=== PATIENT | female | born 1995 | race Caucasian/White ===

== ENCOUNTER → 2016-11-20 | Outpatient (CLI) | payer OTHER ==
[~2016-11-20] MED LIST: CEPH-460 PO; COLA100C3 PO; IBUP-232 PO; ORTH0.35 PO; PREN29TA PO; ZOFR4TAB3 SL
== END ==
LOC: HPND 14:14
PROVIDERS: ATTEND Family Medicine
DX: O41.03X0 Oligohydramnios, third trimester, not applicable or unspecified (principal); Z3A.32 32 weeks gestation of pregnancy
CPT/HCPCS: 76816; 76820

== ENCOUNTER → 2016-12-13 | Outpatient (CLI) | payer OTHER | LOC: HPND 14:36 | PROVIDERS: ATTEND Family Medicine | DX: O36.5920 Maternal care for other known or suspected poor fetal growth, second trimester, not applicable or unspecified (principal) | CPT/HCPCS: 76816 ==

== ENCOUNTER → 2017-01-10 | Outpatient (CLI) | payer OTHER | LOC: HPND 11:04 | PROVIDERS: ATTEND Family Medicine | DX: O36.5930 Maternal care for other known or suspected poor fetal growth, third trimester, not applicable or unspecified (principal) | CPT/HCPCS: 76816 ==

== ENCOUNTER 2017-01-15 18:49 | Inpatient (IN) | payer OTHER ==
[~2017-01-15] VITALS: Ht 165.1 cm; Wt 85.7 kg
[~2017-01-15 18:49] MED LIST changes: -CEPH-460 PO; -IBUP-232 PO; -ORTH0.35 PO; -PREN29TA PO
[2017-01-15] MEDS ORDERED: LACTATED RINGER'S 1000 ML INJ 1,000 ML IV PRN (19:32)
[2017-01-15] MEDS ORDERED: SODIUM CHLOR 0.9% 1000 ML INJ 1,000 ML OTHER PRN (19:34)
[2017-01-15] MEDS ORDERED: CITRIC ACID-SODIUM CITRATE LIQ 30 ML UDC PO SCH (19:45)
[2017-01-15] MEDS ORDERED: SODIUM CHLORIDE 0.9% FLUSH 10 ML FLUSH IV FLUSH PRN (19:45)
[2017-01-15] MEDS ORDERED: ONDANSETRON HCL 4 MG/2 ML VIAL IV PRN (19:45)
[2017-01-15] MEDS ORDERED: SODIUM CHLORID 0.9% 500 ML INJ 500 ML IV PRN (19:45)
[2017-01-15] MEDS ORDERED: LIDOCAINE HCL 1% 50 ML VIAL INFIL PRN (19:45)
[2017-01-15] MEDS ORDERED: LIDOCAINE HCL 1% 50 ML VIAL I-DERMAL PRN (19:45)
[2017-01-15] MEDS ORDERED: MISOPROSTOL 25 MCG SUPP VAGINAL ONE (19:45)
[2017-01-15] MEDS ORDERED: MINERAL OIL 10 ML VIAL TOPICAL PRN (19:45)
[2017-01-15] MEDS ORDERED: OXYTOCIN 30 UNITS-500ML PREMIX 500 ML IV ONE (19:45)
[2017-01-15] MEDS: LACTATED RINGER'S 1000 ML INJ 1,000 ML IV SCH ×2 (19:49→23:43)
[2017-01-15] MEDS ORDERED: SODIUM CHLOR 0.9% 1000 ML INJ 1,000 ML IV PRN (19:52)
--- NOTE | 2017-01-15 19:55 | HHI.HP ---
HPI Chief Complaint IOL Date Seen: Jan 15, 2017 Time Seen: 19:22 (Chelo Rivera MD R1) Travel History International Travel<30 Days: No Contact w/Intl Traveler<30Days: No Known Affected Area: No (Chelo Rivera MD) History of Present Illness HPI Patient is a 21-year-old at 40/0 weeks gestation, due date by second trimester ultrasound, that presents to the [facility] for induction of labor due to low DIEGO according to patient. Notably, 39 week ultrasound shows DIEGO of 20.6 cm. She is followed by Dr. Mary in the [facility]. She is GBS negative , all labs were negative or within normal limits. Today, the patient denies contractions but has been having cramping. She denies regular contractions, vaginal bleeding, abnormal vaginal discharge, or gush of fluid. She endorses normal movements. She is having a girl and is excited to meet her. She does not want an epidural at this time. Para: 0 : 1 Miscarriage: 0 : 0 (Chelo Rivera MD) History Past Medical History Medical History: Denies Significant Hx (Chelo Rivera MD) Obstetric History Obstetric History (Chelo Rivera MD) Past Surgical History Surgical History: No Previous Surgery (Chelo Rivera MD) Family History Narrative Family History Maternal grandmother has diabetes No family history of hypertension Family History: (Chelo Rivera MD) Social History Alcohol Use: No Tobacco Use: No Substance Abuse: No (Chelo Rivera MD) Allergies-Medications (Allergen,Severity, Reaction): Coded Allergies: No Known Allergies (Unverified , 01/11/17) Home Meds Active Scripts Ondansetron Odt (Zofran Odt)4 Mg Tab4 Mg SL Q12HR PRN (Nausea/Vomiting) #30 TAB Ref 2 Prov:Sharlene Mary MD R3 08/15/16 Docusate Sodium (Colace)100 Mg [id number] Mg PO BID PRN (Constipation) #60 CAP Ref 3 Prov:Sharlene Mary MD R3 08/15/16 Review of Systems General / Constitutional: No: Fever, Chills HENT: No: Headaches Cardiovascular: No: Chest Pain or Discomfort, Edema Respiratory: No: Short of Breath Gastrointestinal: No: Nausea, Vomiting Genitourinary: No: Discharge, Vaginal Bleeding Musculoskeletal: Cramping (EkoChelo MD R1) Physical Exam Narrative GENERAL: Well-nourished, well-developed patient. SKIN: Warm and dry. HEAD: Normocephalic and atraumatic. EYES: No scleral icterus. No injection or drainage. ENT: No nasal drainage noted. Mucous membranes pink. Airway patent. NECK: Supple, trachea midline. No JVD. CARDIOVASCULAR: Regular rate and rhythm without murmurs, gallops, or rubs. RESPIRATORY: Breath sounds equal bilaterally. No accessory muscle use. ABDOMEN/GI: Abdomen soft, non-tender, bowel sounds present, no rebound, no guarding Gravid to 40 weeks size Fundal Height: 40 cm GENITOURINARY: External Genitalia: intact and normal in appearance Cervix: Posterior Dilatation: 0 cm Effacement: 50% Station: -2 Presentation: Vertex Membranes: Intact Uterine Contractions: Mild FHT's: Category: 1 Baseline: 145 Reactive: Yes, up to 155 Variability: Moderate Decels: None EXTREMITIES: No cyanosis or obvious edema. BACK: Nontender without obvious deformity. No CVA tenderness. NEUROLOGICAL: Awake and alert. Motor and sensory grossly within normal limits. Five out of 5 muscle strength in all muscle groups. Normal speech. (Chelo Rivera MD R1) Data Data Vital Signs Reviewed: Yes Orders Admit To Inpatient (01/15/17 ) Code Status (01/15/17 19:32) Vital Signs (Adult) .Per protocol (01/15/17 19:32) Activity Oob Ad Charmaine (01/15/17 19:32) ^ Heart (01/15/17 19:32) ^ Amnioinfusion (01/15/17 19:32) Urinary Catheter Management .ONCE (01/15/17 19:32) Diet Liquid (01/16/17 Breakfast) Lactated Ringer's 1000 Ml Inj (Lr 1000 M (01/15/17 19:32) Lactated Ringer's 1000 Ml Inj (Lr 1000 M (01/15/17 19:32) Sodium Chlorid 0.9% 500 Ml Inj (Ns 500 M (01/15/17 19:45) Sodium Chlor 0.9% 1000 Ml Inj (Ns 1000 M (01/15/17 19:52) Lidocaine 1% Inj (50 Ml) (Xylocaine 1% I (01/15/17 19:45) Citric Acid-Sodium Citrate Liq (Bicitra (01/15/17 19:45) Ondansetron Inj (Zofran Inj) (01/15/17 19:45) Fentanyl Inj (Fentanyl Inj) (01/15/17 19:45) Fentanyl Inj (Fentanyl Inj) (01/15/17 19:45) Complete Blood Count With Diff (01/15/17 19:32) Hold Clot (01/15/17 19:32) Abo/Rh Blood Type (01/15/17 19:32) Urinalysis - C+S If Indicated (01/15/17 19:32) Resp Oxygen Non Rebreathe Mask (01/15/17 ) ^ Epidural / Intrathecal Infus (01/15/17 19:32) Oxytocin 30 Units-500ml Premix (Pitocin (01/15/17 19:45) Lidocaine 1% Inj (50 Ml) (Xylocaine 1% I (01/15/17 19:45) Light Mineral Oil (Muri-Lube Oil) (01/15/17 19:45) Inpatient Certification (01/15/17 ) Specimen To Be Collected PRN (01/15/17 19:32) Activity Oob Ad Charmaine (01/15/17 19:34) ^ Labor Induction (01/15/17 19:34) ^ Vaginal Insert (01/15/17 19:34) ^ Vaginal Lavage (01/15/17 19:34) ^ Heart (01/15/17 19:34) Sodium Chloride 0.9% Flush (Ns Flush) (01/15/17 21:00) Sodium Chloride 0.9% Flush (Ns Flush) (01/15/17 19:45) Sodium Chlor 0.9% 1000 Ml Inj (Ns 1000 M (01/15/17 19:34) Misoprostol Supp (Cytotec Supp) (01/15/17 19:45) Misoprostol Supp (Cytotec Supp) (01/15/17 23:45) (Eko,Chelo Mehta MD R1) Assessment/Plan Problem List: (1) 40 weeks gestation of Assessment and Plan 21-year-old at 40/0 weeks gestation presents for induction of labor -Intrauterine -Category 1 tracing, reassuring -Admit for IOL -GBS negative -Intact membranes -Cervical ripening with Cytotec -Expect vaginal delivery Discharge Planning Anticipate discharge in 2-3 days (Chelo Rivera MD R1) Attending Attestation Pt seen and evaluated. Shad with resident A/P. Barbour Score of 3 for cervical ripening. d/w pt cervical ripening plan, oxytocin and epidural and what to expect. Addendum for surgical history: pts mother recalls h/o right breast cystectomy 4 years ago. (Urmila Arteaga MD) Chelo Rivera MD R1 Jan 15, 2017 19:55 Urmila Arteaga MD Jan 15, 2017 21:04
[2017-01-15 20:44] LABS: AUTOMATED NEUTROPHIL # 6.2 TH/MM3 (1.8-7.7); BACTERIA, URINE RARE /hpf; BASOPHIL % 0.3 % (0.0-2.0); BLOOD, URINE NEG (NEG); COMMENT (UR) CULT NOT INDICATED; CULTURE IF INDICATED CULT NOT INDICATED; EOSINOPHIL % 0.4 % (0.0-4.0); GLUCOSE,URINE NEG (NEG); HEMATOCRIT 32.6 % (35.0-46.0); HEMO FLAGS DIFF FINAL; KETONE, URINE 40 mg/dL (NEG); LYMPH % 18.9 % (9.0-44.0); LYMPHOCYTE # 1.6 TH/MM3 (1.0-4.8); MEAN CELL VOLUME 89.6 FL (80.0-100.0); MEAN CORPUSCULAR HEMOGLOBIN 30.4 PG (27.0-34.0); MEAN CORPUSCULAR HGB CONC 33.9 % (32.0-36.0); MONO % 6.1 % (0.0-8.0); MUCUS URINE FEW /lpf (OCC); NEUT % 74.3 % (16.0-70.0); NITRITE,URINE NEG (NEG); PLATELET COUNT 238 TH/MM3 (150-450); RED BLOOD COUNT 3.64 MIL/MM3 (4.00-5.30); RED CELL DISTRIBUTION WIDTH 13.5 % (11.6-17.2); SQUAMOUS EPITHELIAL CELL URINE 7 /hpf (0-5); URINE COLOR YELLOW (YELLW/STRAW); WHITE BLOOD COUNT 8.4 TH/MM3 (4.0-11.0)
[2017-01-15] MEDS ORDERED: SODIUM CHLORIDE 0.9% FLUSH 10 ML FLUSH IV FLUSH SCH (21:00)
[2017-01-15 22:11] VITALS: BP 114/59; PULSE 88
[2017-01-15 23:04] VITALS: BP 120/66; PULSE 87
[2017-01-15] MEDS ORDERED: MISOPROSTOL 25 MCG SUPP VAGINAL PRN (23:45)
[2017-01-16] VITALS (12 sets, daily range): BP systolic 106–130; BP diastolic 43–72; PULSE 59–83; RESP 16–18; TEMP 98–98.2
[2017-01-16] MEDS: LACTATED RINGER'S 1000 ML INJ 1,000 ML IV SCH (05:01)
[2017-01-16] MEDS ORDERED: MISOPROSTOL 25 MCG SUPP VAGINAL ONE (06:45)
--- NOTE | 2017-01-16 07:12 | PD.LABORPN ---
Subjective Subjective Patient resting comfortably in bed. (Michelle Forrest MD R2) Objective Vital Signs Vital Signs Date Time Temp Pulse Resp B/P Pulse Ox O2 Delivery O2 Flow Rate FiO2 01/16/17 07:02 98.0 18 01/16/17 07:00 59 117/72 01/16/17 05:53 61 130/69 01/16/17 04:30 98.2 01/16/17 02:01 72 106/43 01/16/17 00:30 98.0 01/16/17 00:00 76 117/61 Objective Pelvic Exam: Cervix: posterior Dilatation: 2 Effacement: 50 Station: -2 Presentation: vertex Membranes: intact Uterine Contractions: irregular FHT's: Category: I Baseline: 130 Reactive: + Variability: moderate Decels: none (Michelle Forrest MD R2) Assessment/Plan Problem List: (1) 40 weeks gestation of Assessment and Plan 21-year-old at 40/1 weeks gestation 1. Intrauterine - Category I tracing, reassuring 2. IOL- Cytotec x 2 overnight, cervical change to 2/50/-2, soft and stretchy. Will proceed with one more dose of Cytotec prior to starting Pitocin. 3. GBS negative 4. Anticipate vaginal delivery dw Dr. Arteaga, Dr. Mary, and Dr. Syed R1 (Michelle Forrest MD R2) Assessment and Plan Pt seen, discussed plan of care for the day. Overnight she received 2 doses of cytotec (9p, 240a), last dose of cytotec was at 7am, cervix at that time was 2/50/-2. Plan for regular diet now and start oxytocin in 4 hours. Counseled about epidural and what to expect, pt states she wants to try a natural without epidural. Management plan discussed with resident. (Urmila Arteaga MD) Michelle Forrest MD R2 Jan 16, 2017 07:12 Urmila Arteaga MD Jan 16, 2017 07:52
--- NOTE | 2017-01-16 12:25 | HHI.DCPOC ---
Discharge Care Plan Goals to Promote Your Health * To prevent worsening of your condition and complications follow up with your PCP * To maintain your health at the optimal level follow all discharge instructions Directions to Meet Your Goals Take your medications as prescribed Follow your dietary instruction Follow activity as directed Keep your appointments as scheduled Take your immunizations and boosters as scheduled If your symptoms worsen call your PCP, if no PCP go to Urgent Care Center or Emergency Room Smoking is Dangerous to Your Health. Avoid second hand smoke Call the 24-hour hour crisis hotline for domestic abuse at Sharlene Mary MD R3 Jan 16, 2017 12:25
--- NOTE | 2017-01-16 12:39 | PD.LABORPN ---
Subjective Subjective Patient is s/p Cytotec times 3 without change in her cervix which is still 2/50% /-3 and posterior. NST within normal limits. Category I tracing. (Sharlene Mary MD R3) Objective Vital Signs Vital Signs Date Time Temp Pulse Resp B/P Pulse Ox O2 Delivery O2 Flow Rate FiO2 01/16/17 10:23 16 01/16/17 10:01 83 127/70 01/16/17 09:01 75 128/66 01/16/17 08:38 16 01/16/17 08:37 69 114/53 01/16/17 07:02 98.0 18 01/16/17 07:00 59 117/72 01/16/17 05:53 61 130/69 01/16/17 04:30 98.2 Objective Pelvic Exam: Cervix: [posterior] Dilatation: [2] Effacement: [50%] Station: [-3] Presentation: [v] Membranes: [intact] Uterine Contractions: [q3m] FHT's: Category: [1] Baseline: [130] Reactive: [Acels to 135] Variability: [N] Decels: [N] (Sharlene Mary MD R3) Assessment/Plan Problem List: (1) 40 weeks gestation of Assessment and Plan 1. Failed induction of labor -Due to her unfavorable cervix, patient will be discharged to home and return once she goes into labor or at 41 WGA for induction. Labor precautions given. Patient understands that -continuation of induction with unfavorable cervix increases her risk of c/s. - tracing reassuring: Cat I, NST wnl -Follow up in clinic 01/19 (Sharlene Mary MD R3) Collaborating MD Comments Patient s/p cytotec x 3 with no significant cervical change. status reassuring. Have recommended discharge with cervical recheck late week and readmission for induction at 41 weeks. (Isatu Gomez MD) Sharlene Mary MD R3 Jan 16, 2017 12:39 Isatu Gomez MD Jan 16, 2017 13:21
[2017-03-01] MEDS ORDERED: ORTH0.35 PO (10:40)
== END 2017-01-16 12:38 | disposition home or self-care (01) | DRG 782 ==
LOC: H2EB 18:49 → H2EA 18:55
PROVIDERS: ADMIT Obstetrics & Gynecology; ATTEND Obstetrics & Gynecology
DX: O61.9 Failed induction of labor, unspecified (principal); Z3A.40 40 weeks gestation of pregnancy
CPT/HCPCS: 59025; 81001; 85025; 86900; 86901; J7120

== ENCOUNTER 2017-01-19 15:25 | Emergency (ER) | payer OTHER ==
--- NOTE | 2017-01-19 15:52 | PD ---
HPI Chief Complaint leaking "fluid" Date Seen: Jan 19, 2017 (Bjorn Pinedo MD R2) Travel History International Travel<30 Days: No Contact w/Intl Traveler<30Days: No (Bjorn Pinedo MD R2) History of Present Illness HPI Ms. Arita is a 21 yo G1 patient of [address]. Mary at an estimated 40 4/7 weeks who presents with concern for possible ROM. [Interval history: patient seen in office today by Dr. Aden Cope; instructed to go to OB ED for evaluation. Patient had recently underwent induction of labor at 40 wks gestation (01/16); she had a Barbour score <6 despite Cytotec x3 so was discharge home.] Patient states that over the past 2 days, she has been concerned of possible leakage of fluid and is worried that she may have ruptured membranes. Patient also reports having intermittent abdominal pressure suggestive of contractions; she reports this sometimes occurs every 5-10 minutes but sometimes spaces out without any contraction feelings for prolonged durations. Patient reports some bloody vaginal discharge since 01/16 but denies any anabella vaginal bleeding. Patient reports normal movement. No shortness of breath, chest pain, dysuria, leg swelling, headache, nausea, or vomiting. Patient states that she is GBS negative and has had a unremarkable course. Para: 0 : 1 (Bjorn Pinedo MD R2) History Past Medical History Medical History: Denies Significant Hx (Bjorn Pinedo MD R2) Obstetric History Obstetric History G1 (Bjorn Pinedo MD R2) Past Surgical History Narrative Surgical R breast cyst removal (Bjorn Pinedo MD R2) Family History Narrative Family History DM (Bjorn Pinedo MD R2) Social History Alcohol Use: No Tobacco Use: No Substance Abuse: No (Bjorn Pinedo MD R2) Allergies-Medications (Allergen,Severity, Reaction): Coded Allergies: No Known Allergies (Unverified , 01/19/17) Home Meds Active Scripts Ondansetron Odt (Zofran Odt)4 Mg Tab4 Mg SL Q12HR PRN (Nausea/Vomiting) #30 TAB Ref 2 Prov:Sharlene Mary MD R3 08/15/16 Docusate Sodium (Colace)100 Mg [id number] Mg PO BID PRN (Constipation) #60 CAP Ref 3 Prov:Sharlene Mary MD R3 08/15/16 Review of Systems General / Constitutional: No: Fever, Chills Cardiovascular: No: Chest Pain or Discomfort Respiratory: No: Short of Breath Gastrointestinal: No: Nausea, Vomiting Genitourinary: No: Dysuria (Bjorn Pinedo MD R2) Physical Exam BP 113/59 HR 79 RR 18 T 98.5 Narrative GENERAL: Well-nourished, well-developed patient. SKIN: Warm and dry. HEAD: Normocephalic and atraumatic. EYES: No scleral icterus. No injection or drainage. ENT: No nasal drainage noted. Mucous membranes pink. Airway patent. NECK: Supple, trachea midline. No JVD. CARDIOVASCULAR: Regular rate and rhythm; CIPRIANO present. Normal perfusion grossly, no edema RESPIRATORY: CTAB, normal rate EXTREMITIES: No cyanosis or edema. BACK: Nontender without obvious deformity. No CVA tenderness. NEUROLOGICAL: Awake and alert. Motor and sensory function grossly within normal limits. ABDOMEN/GI: Abdomen soft, non-tender, bowel sounds present, no rebound, no guarding Gravid GENITOURINARY: External Genitalia: intact and normal in appearance Cervix: Dilatation: 12 CM Effacement: 50% Station: -2 Membranes: Intact, confirmed with PAMG1 Uterine Contractions: Occasional irritability FHT's: Category: 1 Baseline: 130 Reactive: Y Variability: Mod Decels: None (Bjorn Pinedo MD R2) Data Data Vital Signs Reviewed: Yes (Bjorn Pinedo MD R2) MDM Medical Record Reviewed: Yes Narrative Course / MDM 21 yo G1 patient of [address]. Mary at an estimated 40 4/7 weeks -Concern for ROM -Cat 1 rhythm -Cervix 1-2cm dilation, 50% effacement, -2 station -No regular contractions on EFM Plan: -Check Amnisure -Assess amniotic fluid -Monitor EFM, assess for ctx Interval: Amnisure negative Bedside US used: Deepest vertical pocket 7.6 cm EFM monitored for 25 minutes; reassuring category 1 rhythm Mild uterine irritability, not suggestive of contractions Updated plan: Due to reassuring rhythm and amniotic fluid without the presence of significant cervical dilation of ruptured membranes, patient will be discharged home. If patient does not go into spontaneous labor before 41 weeks, she will return for induction. Patient was even guidance regarding signs of labor and reasons to return to ED (decreased FM, additional concern for ROM, vaginal bleeding, fever/chills, etc) Case discussed and seen with Dr. Barker (Bjorn Pinedo MD R2) Attending Attestation Patient seen, examined, and discussed with Dr Pinedo. I agree with assessment and management as documented and discussed wit e. (Cassidy Barker MD) Diagnosis Diagnosis: Primary Impression: 40 weeks gestation of Additional Impression: No leakage of amniotic fluid into vagina Disposition: 01 DISCHARGE HOME Condition: Stable Patient Instructions: General Instructions, Movement (ED), Having Your Baby: The Labor Process (GEN) Bjorn Pinedo MD R2 Jan 19, 2017 15:52 Cassidy Barker MD Jan 19, 2017 20:24
[2017-01-19 16:14] VITALS: BP 113/59; PULSE 79; RESP 18
[2017-01-19 16:15] VITALS: TEMP 98.5
[2017-03-01] MEDS ORDERED: ORTH0.35 PO (10:40)
== END 2017-01-19 16:54 | disposition home or self-care (01) ==
LOC: HOBED 15:25
DX: O26.893 Other specified pregnancy related conditions, third trimester (principal); N89.8 Other specified noninflammatory disorders of vagina; Z3A.40 40 weeks gestation of pregnancy
CPT/HCPCS: 76815; 84112

== ENCOUNTER 2017-01-21 05:27 | Inpatient (IN) | payer OTHER ==
[~2017-01-21] VITALS: Ht 165.1 cm; Wt 85.7 kg
[2017-01-21] VITALS (119 sets, daily range): BP systolic 91–132; BP diastolic 37–86; PULSE 56–113; RESP 18–20; TEMP 97.8–100.4
--- NOTE | 2017-01-21 06:00 | PD ---
HPI Chief Complaint Contractions Date Seen: Jan 21, 2017 Time Seen: 05:55 (Juliana Graham MD R2) Travel History International Travel<30 Days: No Contact w/Intl Traveler<30Days: No Known Affected Area: No (Juliana Graham MD R2) History of Present Illness HPI Pt is a 21 year old G1 at 40 6/7 weeks based on second trimester US presenting to the [facility] due to contractions. She is a [facility] patient of Dr. Mary. She reports that she began to experience contractions at 9:30pm last night. Around 1 :00am they became more painful, about every 3-4 minutes in frequency. She endorses movement, denies leakage of fluid, she has noticed a small amount of vaginal bleeding. Patient recently underwent induction of labor at 40 weeks on 01/16 with a Barbour score less than 6. She received 3 doses of Cytotec and was discharged home as her cervix remained unfavorable. She is scheduled for an induction tomorrow for post dates. Para: 0 : 1 (Juliana Graham MD R2) History Past Medical History Medical History: Denies Significant Hx (Juliana Graham MD R2) Obstetric History Obstetric History G1, no significant complications (Juliana Graham MD R2) Past Surgical History Narrative Surgical Breast cyst removal (Juliana Graham MD) Family History Narrative Family History Diabetes (Juliana Graham MD R2) Social History Alcohol Use: No Tobacco Use: No Substance Abuse: No (Juliana Graham MD R2) Allergies-Medications (Allergen,Severity, Reaction): Coded Allergies: No Known Allergies (Unverified , 01/19/17) Home Meds Active Scripts Ondansetron Odt (Zofran Odt)4 Mg Tab4 Mg SL Q12HR PRN (Nausea/Vomiting) #30 TAB Ref 2 Prov:Sharlene Mary MD R3 08/15/16 Reported Medications Vit-Iron Carbonyl ( Plus Iron 29-1 mg)1 Tab Tab1 Tab PO DAILY #30 TAB Ref 0 01/21/17 Discontinued Scripts Docusate Sodium (Colace)100 Mg [id number] Mg PO BID PRN (Constipation) #60 CAP Ref 3 Prov:Sharlene Mary MD R3 08/15/16 Review of Systems General / Constitutional: No: Fever, Chills Eyes: No: Visual changes HENT: No: Headaches Cardiovascular: No: Chest Pain or Discomfort, Edema Gastrointestinal: Abdominal Pain Musculoskeletal: No: Edema Psychiatric: No: Mood Disorder (Juliana Graham MD R2) Physical Exam Narrative GENERAL: Well-nourished, well-developed patient. SKIN: Warm and dry. HEAD: Normocephalic and atraumatic. EYES: No scleral icterus. No injection or drainage. ENT: No nasal drainage noted. Mucous membranes pink. Airway patent. NECK: Supple, trachea midline. No JVD. CARDIOVASCULAR: Regular rate and rhythm without murmurs, gallops, or rubs. RESPIRATORY: Breath sounds equal bilaterally. No accessory muscle use. ABDOMEN/GI: Abdomen soft, non-tender, bowel sounds present, no rebound, no guarding Gravid to 40 weeks size GENITOURINARY: External Genitalia: intact and normal in appearance Cervix: -3 Dilatation: 2-3cm Effacement: -3 Station: -3 Presentation: Vertex Membranes: Intact Uterine Contractions: Q2 minutes FHT's: Category: 1 Baseline: 145 Reactive: + Variability: Moderate Decels: Absent EXTREMITIES: No cyanosis or edema. BACK: Nontender without obvious deformity. No CVA tenderness. NEUROLOGICAL: Awake and alert. Motor and sensory grossly within normal limits. Five out of 5 muscle strength in all muscle groups. Normal speech. (Juliana Graham MD R2) Data Data Vital Signs Reviewed: Yes Orders Ob (2e) Additional Admit Info (01/21/17 05:55) (Juliana Graham MD R2) [facility] Medical Record Reviewed: Yes Interpretation(s) Patient is a 21-year-old G1 presenting due to contractions, currently in labor. -Patient to be admitted -Category 1 tracing, reassuring -Contractions occurring Q 2 minutes, cervix dilated to 23 centimeters -External monitoring/toco -GBS negative -Continue to monitor contractions -We'll check cervix in 2 hours to assess cervical change, consider labor augmentation with Pitocin if appropriate -Patient desires epidural DW Dr. Mary, Dr. Arteaga (Juliana Graham MD R2) Attending Attestation Pt seen and evaluated. Known to the service due to recent admission. Epidural when/if desired. (Urmila Arteaga MD) Diagnosis Diagnosis: Primary Impression: Uterine contractions during Additional Impression: Post-dates Qualified Code: O48.0 - Post-term , 40-42 weeks of gestation Juliana Graham MD R2 Jan 21, 2017 06:00 Urmila Arteaga MD Jan 21, 2017 06:32
[2017-01-21] MEDS ORDERED: LACTATED RINGER'S 1000 ML INJ 1,000 ML IV PRN (06:01)
[2017-01-21] MEDS ORDERED: PREN29TA PO (06:03)
[2017-01-21] MEDS ORDERED: MINERAL OIL 10 ML VIAL TOPICAL PRN (06:15)
[2017-01-21] MEDS ORDERED: LIDOCAINE HCL 1% 50 ML VIAL I-DERMAL PRN (06:15)
[2017-01-21] MEDS ORDERED: OXYTOCIN 30 UNITS-500ML PREMIX 500 ML IV ONE (06:15)
[2017-01-21] MEDS ORDERED: SODIUM CHLORID 0.9% 500 ML INJ 500 ML IV PRN (06:15)
[2017-01-21] MEDS ORDERED: LIDOCAINE HCL 1% 50 ML VIAL INFIL PRN (06:15)
[2017-01-21] MEDS ORDERED: CITRIC ACID-SODIUM CITRATE LIQ 30 ML UDC PO SCH (06:15)
[2017-01-21] MEDS ORDERED: SODIUM CHLOR 0.9% 1000 ML INJ 1,000 ML IV PRN (06:21)
--- NOTE | 2017-01-21 06:24 | HHI.HP ---
History & Physical H&P HPI Chief Complaint Contractions Date Seen: Jan 21, 2017 Time Seen: 05:55 Travel History International Travel<30 Days: No Contact w/Intl Traveler<30Days: No Known Affected Area: No History of Present Illness HPI Pt is a 21 year old G1 at 40 6/7 weeks based on second trimester US presenting to the [facility] due to contractions. She is a [facility] patient of Dr. Mary. She reports that she began to experience contractions at 9:30pm last night. Around 1 :00am they became more painful, about every 3-4 minutes in frequency. She endorses movement, denies leakage of fluid, she has noticed a small amount of vaginal bleeding. Patient recently underwent induction of labor at 40 weeks on 01/16 with a Barbour score less than 6. She received 3 doses of Cytotec and was discharged home as her cervix remained unfavorable. She is scheduled for an induction tomorrow for post dates. Para: 0 : 1 History (Limited) History Past Medical History Medical History: Denies Significant Hx Obstetric History Obstetric History G1, no significant complications Past Surgical History Narrative Surgical Breast cyst removal Family History Narrative Family History Diabetes Social History Alcohol Use: No Tobacco Use: No Substance Abuse: No Allergies-Medications Allergies-Medications (Allergen,Severity, Reaction): Coded Allergies: No Known Allergies (Unverified , 01/19/17) Home Meds Active Scripts Ondansetron Odt (Zofran Odt)4 Mg Tab4 Mg SL Q12HR PRN (Nausea/Vomiting) #30 TAB Ref 2 Prov:Sharlene Mary MD R3 08/15/16 Reported Medications Vit-Iron Carbonyl ( Plus Iron 29-1 mg)1 Tab Tab1 Tab PO DAILY #30 TAB Ref 0 01/21/17 Discontinued Scripts Docusate Sodium (Colace)100 Mg [id number] Mg PO BID PRN (Constipation) #60 CAP Ref 3 Prov:Sharlene Mary MD R3 08/15/16 ROS Review of Systems General / Constitutional: No: Fever, Chills Eyes: No: Visual changes HENT: No: Headaches Cardiovascular: No: Chest Pain or Discomfort, Edema Gastrointestinal: Abdominal Pain Musculoskeletal: No: Edema Psychiatric: No: Mood Disorder Physical Exam Physical Exam Narrative GENERAL: Well-nourished, well-developed patient. SKIN: Warm and dry. HEAD: Normocephalic and atraumatic. EYES: No scleral icterus. No injection or drainage. ENT: No nasal drainage noted. Mucous membranes pink. Airway patent. NECK: Supple, trachea midline. No JVD. CARDIOVASCULAR: Regular rate and rhythm without murmurs, gallops, or rubs. RESPIRATORY: Breath sounds equal bilaterally. No accessory muscle use. ABDOMEN/GI: Abdomen soft, non-tender, bowel sounds present, no rebound, no guarding Gravid to 40 weeks size GENITOURINARY: External Genitalia: intact and normal in appearance Cervix: -3 Dilatation: 2-3cm Effacement: -3 Station: -3 Presentation: Vertex Membranes: Intact Uterine Contractions: Q2 minutes FHT's: Category: 1 Baseline: 145 Reactive: + Variability: Moderate Decels: Absent EXTREMITIES: No cyanosis or edema. BACK: Nontender without obvious deformity. No CVA tenderness. NEUROLOGICAL: Awake and alert. Motor and sensory grossly within normal limits. Five out of 5 muscle strength in all muscle groups. Normal speech. Data Data Data Vital Signs Reviewed: Yes Orders Ob (2e) Additional Admit Info (01/21/17 05:55) [facility] Medical Record Reviewed: Yes Interpretation(s) Patient is a 21-year-old G1 presenting due to contractions, currently in labor. -Patient to be admitted -Category 1 tracing, reassuring -Contractions occurring Q 2 minutes, cervix dilated to 23 centimeters -External monitoring/toco -GBS negative -Continue to monitor contractions -We'll check cervix in 2 hours to assess cervical change, consider labor augmentation with Pitocin if appropriate -Patient desires epidural DW Dr. Mary, Dr. Arteaga Diagnosis Diagnosis: Primary Impression: Uterine contractions during Additional Impression: Post-dates Qualified Code: O48.0 - Post-term , 40-42 weeks of gestation Juliana Graham MD R2 Jan 21, 2017 06:24
[2017-01-21 06:47] LABS: AUTOMATED NEUTROPHIL # 9.1 TH/MM3 (1.8-7.7); BASOPHIL # 0.1 TH/MM3 (0-0.2); BASOPHIL % 0.5 % (0.0-2.0); EOSINOPHIL # 0.1 TH/MM3 (0-0.4); EOSINOPHIL % 0.6 % (0.0-4.0); HEMATOCRIT 33.8 % (35.0-46.0); HEMO FLAGS DIFF FINAL; LYMPH % 17.4 % (9.0-44.0); LYMPHOCYTE # 2.1 TH/MM3 (1.0-4.8); MEAN CELL VOLUME 89.8 FL (80.0-100.0); MEAN CORPUSCULAR HEMOGLOBIN 29.9 PG (27.0-34.0); MEAN CORPUSCULAR HGB CONC 33.3 % (32.0-36.0); MONO % 6.6 % (0.0-8.0); NEUT % 74.9 % (16.0-70.0); PLATELET COUNT 231 TH/MM3 (150-450); RED BLOOD COUNT 3.77 MIL/MM3 (4.00-5.30); RED CELL DISTRIBUTION WIDTH 13.1 % (11.6-17.2); WHITE BLOOD COUNT 12.2 TH/MM3 (4.0-11.0)
[2017-01-21 06:47] LABS: BACTERIA, URINE RARE /hpf; BLOOD, URINE MOD (NEG); COMMENT (UR) CULT NOT INDICATED; CULTURE IF INDICATED CULT NOT INDICATED; GLUCOSE,URINE NEG (NEG); KETONE, URINE 40 mg/dL (NEG); MUCUS URINE FEW /lpf (OCC); NITRITE,URINE NEG (NEG); PH, URINE 6.5 (5.0-8.5); SQUAMOUS EPITHELIAL CELL URINE 2 /hpf (0-5); URINE COLOR YELLOW (YELLW/STRAW)
[2017-01-21] MEDS: LACTATED RINGER'S 1000 ML INJ 1,000 ML IV SCH ×2 (08:22→10:42)
[2017-01-21] MEDS ORDERED: ePHEDrine/NS 25 MG/5 ML SYR ONE ×2 (09:01)
[2017-01-21] MEDS ORDERED: fentaNYL 2MCG-BUPIV 0.125% INJ 100 ML ONE (09:04)
--- NOTE | 2017-01-21 11:28 | PD.LABORPN ---
Subjective Subjective Patient feeling well s/p epidural placement. Objective Vital Signs Vital Signs Date Time Temp Pulse Resp B/P Pulse Ox O2 Delivery O2 Flow Rate FiO2 01/21/17 10:55 79 01/21/17 10:51 20 01/21/17 10:50 77 01/21/17 10:45 79 121/69 01/21/17 10:45 67 01/21/17 10:40 71 01/21/17 10:40 67 118/66 01/21/17 10:36 80 100/51 01/21/17 10:35 74 01/21/17 10:30 72 01/21/17 10:30 79 108/68 01/21/17 10:28 72 110/57 01/21/17 10:25 72 114/58 01/21/17 10:25 75 01/21/17 10:23 98.3 20 01/21/17 10:20 74 01/21/17 10:20 75 115/61 01/21/17 10:15 78 01/21/17 10:14 74 106/56 01/21/17 10:10 68 01/21/17 10:09 66 116/65 01/21/17 10:06 71 129/57 01/21/17 10:05 72 01/21/17 10:03 76 120/55 01/21/17 10:00 70 01/21/17 09:56 20 01/21/17 09:55 75 01/21/17 09:53 73 118/59 01/21/17 09:45 78 01/21/17 09:35 69 01/21/17 09:30 77 01/21/17 09:25 74 01/21/17 09:20 80 01/21/17 09:15 68 01/21/17 09:10 66 01/21/17 09:08 20 01/21/17 09:06 84 113/69 01/21/17 09:05 70 01/21/17 09:00 69 01/21/17 08:55 77 01/21/17 08:50 73 01/21/17 08:21 60 118/57 01/21/17 08:19 56 116/57 01/21/17 08:14 20 01/21/17 08:14 63 93/51 01/21/17 08:14 59 98/49 01/21/17 08:13 59 91/38 01/21/17 07:21 70 117/59 01/21/17 07:18 68 114/56 01/21/17 07:16 60 109/53 01/21/17 07:15 20 01/21/17 07:15 115/48 01/21/17 07:15 63 109/53 01/21/17 07:15 98.3 01/21/17 07:15 60 115/48 Objective Pelvic Exam: Cervix: [soft] Dilatation: [3-4] Effacement: [50%] Station: [-3] Presentation: [v] Membranes: [AROM] Uterine Contractions: [q4m] FHT's: Category: [I] Baseline: [130] Reactive: [acels to 150] Variability: [N] Decels: [N] Assessment/Plan Assessment and Plan 1. Intrauterine Artificial rupture of membranes at 11:30 Alberto every 4 minutes Will start Pitocin at 2230 Anticipate vaginal delivery Sharlene Mary MD R3 Jan 21, 2017 11:28
[2017-01-21] MEDS ORDERED: OXYTOCIN 30 UNITS-500ML PREMIX 500 ML IV SCH (11:30)
[2017-01-21] MEDS ORDERED: DO NOT ADMINISTER ANTICOAGULANTS PRN (11:45)
[2017-01-21] MEDS ORDERED: NO SYSTEM NARCOTICS PRN (11:45)
[2017-01-21] MEDS ORDERED: fentaNYL 2MCG-BUPIV 0.125% 100 ML EPIDURAL SCH (11:45)
[2017-01-21] MEDS ORDERED: ePHEDrine/NS 25 MG/5 ML SYR IV PRN (11:45)
[2017-01-21] MEDS ORDERED: DIPHTH/TETANUS/ACEL PERTUSSIS (BOOSTER) 0.5 ML VIAL/PFS IM ONE (16:00)
[2017-01-21] MEDS ORDERED: MEASLES, MUMPS, RUBELLA VACCINE 0.5 ML VIAL SQ ONE (16:00)
--- NOTE | 2017-01-21 16:30 | PD.LABORPN ---
Subjective Subjective Patient with reassuring FHTs. Alberto q2m. Feeling pressure of contractions. Objective Vital Signs Vital Signs Date Time Temp Pulse Resp B/P Pulse Ox O2 Delivery O2 Flow Rate FiO2 01/21/17 15:48 98.4 18 01/21/17 15:45 77 121/67 01/21/17 15:31 79 126/73 01/21/17 15:15 75 108/55 01/21/17 15:00 84 121/73 01/21/17 14:51 98.3 01/21/17 14:48 18 01/21/17 14:45 78 115/64 01/21/17 14:31 74 116/58 01/21/17 14:15 64 115/62 01/21/17 14:01 72 101/56 01/21/17 13:49 18 01/21/17 13:46 77 114/50 01/21/17 13:31 67 113/56 01/21/17 13:21 71 118/50 01/21/17 13:16 77 117/64 01/21/17 13:01 68 117/58 01/21/17 12:47 97.8 18 01/21/17 12:45 67 113/56 01/21/17 12:32 73 112/65 01/21/17 12:31 84 102/44 01/21/17 12:24 67 119/62 01/21/17 12:15 77 116/75 01/21/17 12:01 76 116/75 01/21/17 11:48 98.2 01/21/17 11:46 67 18 102/55 01/21/17 11:35 72 01/21/17 11:30 65 01/21/17 11:30 71 113/59 01/21/17 11:25 67 01/21/17 11:20 63 01/21/17 11:16 69 118/59 01/21/17 11:15 60 01/21/17 11:10 69 01/21/17 11:05 63 01/21/17 11:00 66 01/21/17 11:00 64 118/72 01/21/17 10:55 79 01/21/17 10:51 20 01/21/17 10:50 77 01/21/17 10:45 79 121/69 01/21/17 10:45 67 01/21/17 10:40 71 01/21/17 10:40 67 118/66 01/21/17 10:36 80 100/51 01/21/17 10:35 74 01/21/17 10:30 72 01/21/17 10:30 79 108/68 01/21/17 10:28 72 110/57 01/21/17 10:25 72 114/58 01/21/17 10:25 75 01/21/17 10:23 98.3 20 01/21/17 10:20 74 01/21/17 10:20 75 115/61 01/21/17 10:15 78 01/21/17 10:14 74 106/56 01/21/17 10:10 68 01/21/17 10:09 66 116/65 01/21/17 10:06 71 129/57 01/21/17 10:05 72 01/21/17 10:03 76 120/55 01/21/17 10:00 70 01/21/17 09:56 20 01/21/17 09:55 75 01/21/17 09:53 73 118/59 01/21/17 09:45 78 01/21/17 09:35 69 01/21/17 09:30 77 01/21/17 09:25 74 01/21/17 09:20 80 01/21/17 09:15 68 01/21/17 09:10 66 01/21/17 09:08 20 01/21/17 09:06 84 113/69 01/21/17 09:05 70 01/21/17 09:00 69 01/21/17 08:55 77 01/21/17 08:50 73 Objective Pelvic Exam: Cervix: [soft] Dilatation: [6-7] Effacement: [80%] Station: [-1] Presentation: [v] Membranes: [ruptured] Uterine Contractions: [q2m] FHT's: Category: [1] Baseline: [140] Reactive: [acels] Variability: [Y] Decels: [N] Assessment/Plan Assessment and Plan 1. Intrauterine Artificial rupture of membranes at 11:30 Alberto every 2 minutes Pitocin currently on hold -IUPC placed Anticipate vaginal delivery Sharlene Mary MD R3 Jan 21, 2017 16:30
--- NOTE | 2017-01-21 21:03 | PD.OB.DELI ---
Delivery Date: Jan 21, 2017 Anesthesia: Epidural Episiotomy: None Vaginal Delivery: Spontaneous Presentation: Occiput posterior Nuchal Cord: None Delayed cord clamping (45 sec): Yes : Female One Minute : 9 Five Minute : 9 Weight: 3210g Placenta: Spontaneous delivery Laceration: Vaginal laceration, 1 deg Repair: Chromic Sharlene Minor MD R3 Jan 21, 2017 21:03
--- NOTE | 2017-01-21 21:10 | PD.LABORPN ---
Subjective Subjective OB Attending note Pt delivered vaginally over [address] deg vaginal lac, resident did the delivery with my supervision , she did an excellent job, baby was , female, wt 3210 gm , 8/9 . no complication to delivery.cord blood obtained , placenta out spont intact, lac repaired with 2 large fig of 8 sutures of 0- chromic. EBL 200 cc. mother & baby doing well Objective Vital Signs Vital Signs Date Time Temp Pulse Resp B/P Pulse Ox O2 Delivery O2 Flow Rate FiO2 01/21/17 21:01 128/68 01/21/17 21:01 98 01/21/17 20:59 18 01/21/17 20:59 99 126/60 01/21/17 20:58 98.9 01/21/17 20:58 98.9 01/21/17 20:18 80 101/47 01/21/17 20:01 85 132/72 01/21/17 20:00 18 01/21/17 19:45 82 122/72 01/21/17 19:30 113 122/86 01/21/17 19:15 88 127/68 01/21/17 19:00 89 126/70 01/21/17 18:56 98.2 01/21/17 18:56 18 01/21/17 18:45 81 124/64 01/21/17 18:30 74 116/66 01/21/17 18:15 72 117/63 01/21/17 18:00 70 118/65 01/21/17 17:55 98.8 18 01/21/17 17:46 84 103/51 01/21/17 17:45 75 99/48 01/21/17 17:31 71 105/53 01/21/17 17:26 99.3 01/21/17 17:15 77 116/58 01/21/17 17:00 83 125/59 01/21/17 16:54 18 01/21/17 16:46 78 118/68 01/21/17 16:30 89 121/60 01/21/17 16:16 73 117/64 01/21/17 16:00 77 117/71 01/21/17 15:48 98.4 18 01/21/17 15:48 98.9 01/21/17 15:45 77 121/67 01/21/17 15:31 79 126/73 01/21/17 15:15 75 108/55 01/21/17 15:00 84 121/73 01/21/17 14:51 98.3 01/21/17 14:48 18 01/21/17 14:45 78 115/64 01/21/17 14:31 74 116/58 01/21/17 14:15 64 115/62 01/21/17 14:01 72 101/56 01/21/17 13:49 18 01/21/17 13:46 77 114/50 01/21/17 13:31 67 113/56 01/21/17 13:21 71 118/50 01/21/17 13:16 77 117/64 Objective Huy Gottlieb II, MD Jan 21, 2017 21:10
[2017-01-21] MEDS ORDERED: WITCH HAZEL 50%/GLYCERIN 12.5% 40 PAD JAR TOPICAL PRN (21:15)
[2017-01-21] MEDS ORDERED: ALUMINUM/MAGNESIUM/SIMETH 30 ML CUP PO PRN (21:15)
[2017-01-21] MEDS ORDERED: ACETAMINOPHEN 325 MG TAB PO PRN (21:15)
[2017-01-21] MEDS ORDERED: BENZOCAINE 20% TOPICAL SPRAY 60 ML CAN TOPICAL PRN (21:15)
[2017-01-21] MEDS ORDERED: ONDANSETRON ODT 4 MG TAB PO PRN (21:15)
[2017-01-21] MEDS ORDERED: ZOLPIDEM TARTRATE 5 MG TAB PO PRN (21:15)
[2017-01-21] MEDS ORDERED: SODIUM CHLORIDE 0.9% FLUSH 10 ML FLUSH IV FLUSH PRN (21:15)
[2017-01-22] VITALS: BP 114/73; PULSE 96; RESP 16; RESP 6; TEMP 98.2
[2017-01-22 04:00] VITALS: BP 114/66; PULSE 80; RESP 22; TEMP 98.1
--- NOTE | 2017-01-22 07:47 | HHI.OB ---
Subjective Post Day: 1 Remarks day # 1. AFVSS overnight. Pain well-controlled. Decreased lochia. Denies dysuria. No breast tenderness. She is feeding the baby via . Appetite good. No nausea or vomiting. Ambulating well. Denies calf pain, shortness of breath, or cough. Otherwise, she is doing well this morning and has no other complaints. Objective Vitals/I&O Vital Signs Date Time Temp Pulse Resp B/P Pulse Ox O2 Delivery O2 Flow Rate FiO2 01/22/17 04:00 98.1 80 22 114/66 01/22/17 00:00 98.2 16 01/22/17 00:00 96 6 114/73 01/21/17 22:58 98.8 01/21/17 22:30 18 01/21/17 22:28 100.4 01/21/17 22:15 83 130/61 01/21/17 22:10 18 01/21/17 22:01 106 131/80 01/21/17 22:00 18 01/21/17 21:46 79 117/59 01/21/17 21:45 18 01/21/17 21:32 92 129/61 01/21/17 21:19 18 01/21/17 21:15 92 130/73 01/21/17 21:01 128/68 01/21/17 21:01 98 01/21/17 20:59 18 01/21/17 20:59 99 126/60 01/21/17 20:58 98.9 01/21/17 20:58 98.9 01/21/17 20:31 83 95/37 01/21/17 20:18 80 101/47 01/21/17 20:01 85 132/72 01/21/17 20:00 18 01/21/17 19:45 82 122/72 01/21/17 19:30 113 122/86 01/21/17 19:15 88 127/68 01/21/17 19:00 89 126/70 01/21/17 18:56 98.2 01/21/17 18:56 18 01/21/17 18:45 81 124/64 01/21/17 18:30 74 116/66 01/21/17 18:15 72 117/63 01/21/17 18:00 70 118/65 01/21/17 17:55 98.8 18 01/21/17 17:46 84 103/51 01/21/17 17:45 75 99/48 01/21/17 17:31 71 105/53 01/21/17 17:26 99.3 01/21/17 17:15 77 116/58 01/21/17 17:00 83 125/59 01/21/17 16:54 18 01/21/17 16:46 78 118/68 01/21/17 16:30 89 121/60 01/21/17 16:16 73 117/64 01/21/17 16:00 77 117/71 01/21/17 15:48 98.4 18 01/21/17 15:48 98.9 01/21/17 15:45 77 121/67 01/21/17 15:31 79 126/73 01/21/17 15:15 75 108/55 01/21/17 15:00 84 121/73 01/21/17 14:51 98.3 01/21/17 14:48 18 01/21/17 14:45 78 115/64 01/21/17 14:31 74 116/58 01/21/17 14:15 64 115/62 01/21/17 14:01 72 101/56 01/21/17 13:49 18 01/21/17 13:46 77 114/50 01/21/17 13:31 67 113/56 01/21/17 13:21 71 118/50 01/21/17 13:16 77 117/64 01/21/17 13:01 68 117/58 01/21/17 12:47 97.8 18 01/21/17 12:45 67 113/56 01/21/17 12:32 73 112/65 01/21/17 12:31 84 102/44 01/21/17 12:24 67 119/62 01/21/17 12:15 77 116/75 01/21/17 12:01 76 116/75 01/21/17 11:48 98.2 01/21/17 11:46 67 18 102/55 01/21/17 11:35 72 01/21/17 11:30 65 01/21/17 11:30 71 113/59 01/21/17 11:25 67 01/21/17 11:20 63 01/21/17 11:16 69 118/59 01/21/17 11:15 60 01/21/17 11:10 69 01/21/17 11:05 63 01/21/17 11:00 66 01/21/17 11:00 64 118/72 01/21/17 10:55 79 01/21/17 10:51 20 01/21/17 10:50 77 01/21/17 10:45 79 121/69 01/21/17 10:45 67 01/21/17 10:40 71 01/21/17 10:40 67 118/66 01/21/17 10:36 80 100/51 01/21/17 10:35 74 01/21/17 10:30 72 01/21/17 10:30 79 108/68 01/21/17 10:28 72 110/57 01/21/17 10:25 72 114/58 01/21/17 10:25 75 01/21/17 10:23 98.3 20 01/21/17 10:20 74 01/21/17 10:20 75 115/61 01/21/17 10:15 78 01/21/17 10:14 74 106/56 01/21/17 10:10 68 01/21/17 10:09 66 116/65 01/21/17 10:06 71 129/57 01/21/17 10:05 72 01/21/17 10:03 76 120/55 01/21/17 10:00 70 01/21/17 09:56 20 01/21/17 09:55 75 01/21/17 09:53 73 118/59 01/21/17 09:45 78 01/21/17 09:35 69 01/21/17 09:30 77 01/21/17 09:25 74 01/21/17 09:20 80 01/21/17 09:15 68 01/21/17 09:10 66 01/21/17 09:08 20 01/21/17 09:06 84 113/69 01/21/17 09:05 70 01/21/17 09:00 69 01/21/17 08:55 77 01/21/17 08:50 73 01/21/17 08:21 60 118/57 01/21/17 08:19 56 116/57 01/21/17 08:14 20 01/21/17 08:14 63 93/51 01/21/17 08:14 59 98/49 01/21/17 08:13 59 91/38 Objective Remarks GENERAL: Well-nourished, well-developed patient. CARDIOVASCULAR: Regular rate and rhythm without murmurs, gallops, or rubs. RESPIRATORY: Breath sounds equal bilaterally. No accessory muscle use. ABDOMEN/GI: Abdomen soft, non-tender. Fundus: Firm, non-tender at umbilicus. GENITOURINARY: Moderate bleeding. EXTREMITIES: No cyanosis or edema, non-tender, without signs of DVT. Medications and IVs Current Medications Medications (Trade) Dose Ordered Sig/Felicitas Route Start Time Stop Time Status Last Admin Lactated Ringer's 1,000 ml @ 125 mls/hr Q8H IV 01/21/17 06:01 01/21/17 10:42 Lactated Ringer's 1,000 ml @ 3,000 mls/hr Q20M PRN IV 01/21/17 06:01 Sodium Chloride 500 ml @ 1,000 mls/hr ONCE PRN IV 01/21/17 06:15 01/28/17 06:14 (NS 1000 ml Inj) 1,000 ml @ 100 mls/hr Q10H PRN IV 01/21/17 06:21 (fentaNYL INJ) 50 mcg Q1H PRN IV PUSH 01/21/17 06:15 01/21/17 07:10 (fentaNYL INJ) 100 mcg Q1H PRN IV PUSH 01/21/17 06:15 Mineral Oil 10 ml 10 ml UNSCH PRN TOPICAL 01/21/17 06:15 (Pitocin 30 Units-NS 500 ml Premix) 500 ml @ 0 mls/hr TITRATE IV 01/21/17 11:30 01/21/17 11:52 Miscellaneous Information No systemic narcotics to be given except... UNSCH PRN .XX 01/21/17 11:45 01/22/17 11:44 Miscellaneous Information DO NOT ADMINISTER ANY ANTICOAGUL... UNSCH PRN .XX 01/21/17 11:45 01/22/17 11:44 (fentaNYL 2MCG-BUPIV 0.125% INJ) 100 ml @ 0 mls/hr TITRATE EPIDURAL 01/21/17 11:45 (ePHEDrine/NS 25 MG/5 ML SYR) 10 mg UNSCH PRN IV 01/21/17 11:45 01/22/17 11:44 (NS Flush) 2 ml BID IV FLUSH 01/22/17 09:00 (NS Flush) 2 ml UNSCH PRN IV FLUSH 01/21/17 21:15 (Tylenol) 650 mg Q4H PRN PO 01/21/17 21:15 01/21/17 22:34 (Motrin) 600 mg Q6H PRN PO 01/21/17 21:15 (Americaine 20% Top Spr) 1 spray Q4H PRN TOPICAL 01/21/17 21:15 01/22/17 03:30 (Tucks Pads) 1 applic QID PRN TOPICAL 01/21/17 21:15 01/22/17 03:30 (Oralia-Colace) 2 tab Q12H PRN PO 01/21/17 21:15 (Ambien) 5 mg HS PRN PO 01/21/17 21:15 (Mag-Al Plus Susp Liq) 15 ml Q8H PRN PO 01/21/17 21:15 (Zofran Odt) 4 mg Q6H PRN PO 01/21/17 21:15 Assessment/Plan Assessment and Plan 21 y/o female who is PPD# 1 s/p . -Continue routine care. -Tylenol and Motrin PRN pain. -Encouraged OOB. Advised pelvic rest for 6 wks. -Will need a f/u appt. within 6 wks. -D/c tomorrow Discharge Planning Likely to home tomorrow Sharlene Mary MD R3 Jan 22, 2017 07:47
[2017-01-22] MEDS: DOCUSATE SODIUM 50 MG/SENNA 8.6 MG TAB PO PRN (08:54)
[2017-01-22] MEDS ORDERED: SODIUM CHLORIDE 0.9% FLUSH 10 ML FLUSH IV FLUSH SCH (09:00)
[2017-01-22] MEDS: IBUPROFEN 600 MG TAB PO PRN (16:24)
[2017-01-22 19:42] VITALS: BP 131/76; PULSE 80; RESP 20; TEMP 97.9
[2017-01-23] MEDS: IBUPROFEN 600 MG TAB PO PRN (07:25)
[2017-01-23] MEDS ORDERED: IBUP-232 PO (07:25)
--- NOTE | 2017-01-23 07:26 | HHI.DCPOC ---
Discharge Care Plan Report Symptoms to Your Doctor -Temperate above 100.5 degrees -Redness, of incision or excessive or foul smelling drainage -Unusual pain or calf pain -Increased vaginal bleeding -Painful or difficulty urinating -Feelings of extreme sadness or anxiety after 2 weeks Goals to Promote Your Health * To prevent worsening of your condition and complications follow all discharge instructions * To maintain your health at the optimal level follow up with your OB in 6 weeks Directions to Meet Your Goals Take your medications as prescribed Follow your dietary instruction Follow activity as directed Ensure plenty of rest for recovery Drink fluids for hydration Keep your appointments as scheduled Take your immunizations and boosters as scheduled If your symptoms worsen call your PCP, if no PCP go to Urgent Care Center or Emergency Room Smoking is Dangerous to Your Health. Avoid second hand smoke Call the 24-hour crisis hotline for domestic abuse at Sharlene Mary MD R3 Jan 23, 2017 07:26
--- NOTE | 2017-01-23 07:29 | HHI.OB ---
Subjective Post Day: 2 Remarks day # 2. AFVSS overnight. Pain well-controlled. Decreased lochia. Denies dysuria. No breast tenderness. She is feeding the baby via breast. Appetite good. No nausea or vomiting. Ambulating well. Denies calf pain, shortness of breath, or cough. Otherwise, she is doing well this morning and has no other complaints. (Sharlene Mary MD R3) Objective Vitals/I&O Vital Signs Date Time Temp Pulse Resp B/P Pulse Ox O2 Delivery O2 Flow Rate FiO2 01/22/17 19:42 80 131/76 01/22/17 19:42 97.9 20 Objective Remarks GENERAL: Well-nourished, well-developed patient. CARDIOVASCULAR: Regular rate and rhythm without murmurs, gallops, or rubs. RESPIRATORY: Breath sounds equal bilaterally. No accessory muscle use. ABDOMEN/GI: Abdomen soft, non-tender. Fundus: Firm, non-tender at umbilicus. GENITOURINARY: Moderate bleeding. EXTREMITIES: No cyanosis or edema, non-tender, without signs of DVT. Medications and IVs Current Medications Medications (Trade) Dose Ordered Sig/Felicitas Route Start Time Stop Time Status Last Admin Lactated Ringer's 1,000 ml @ 125 mls/hr Q8H IV 01/21/17 06:01 01/21/17 10:42 Lactated Ringer's 1,000 ml @ 3,000 mls/hr Q20M PRN IV 01/21/17 06:01 Sodium Chloride 500 ml @ 1,000 mls/hr ONCE PRN IV 01/21/17 06:15 01/28/17 06:14 (NS 1000 ml Inj) 1,000 ml @ 100 mls/hr Q10H PRN IV 01/21/17 06:21 (fentaNYL INJ) 50 mcg Q1H PRN IV PUSH 01/21/17 06:15 01/21/17 07:10 (fentaNYL INJ) 100 mcg Q1H PRN IV PUSH 01/21/17 06:15 Mineral Oil 10 ml 10 ml UNSCH PRN TOPICAL 01/21/17 06:15 Oxytocin 500 ml @ 0 mls/hr TITRATE IV 01/21/17 11:30 01/21/17 11:52 (fentaNYL 2MCG-BUPIV 0.125% INJ) 100 ml @ 0 mls/hr TITRATE EPIDURAL 01/21/17 11:45 (NS Flush) 2 ml BID IV FLUSH 01/22/17 09:00 (NS Flush) 2 ml UNSCH PRN IV FLUSH 01/21/17 21:15 (Tylenol) 650 mg Q4H PRN PO 01/21/17 21:15 01/21/17 22:34 (Motrin) 600 mg Q6H PRN PO 01/21/17 21:15 01/23/17 07:25 (Americaine 20% Top Spr) 1 spray Q4H PRN TOPICAL 01/21/17 21:15 01/22/17 03:30 (Tucks Pads) 1 applic QID PRN TOPICAL 01/21/17 21:15 01/22/17 03:30 (Oralia-Colace) 2 tab Q12H PRN PO 01/21/17 21:15 01/22/17 08:54 (Ambien) 5 mg HS PRN PO 01/21/17 21:15 (Mag-Al Plus Susp Liq) 15 ml Q8H PRN PO 01/21/17 21:15 (Zofran Odt) 4 mg Q6H PRN PO 01/21/17 21:15 (Sharlene Mary MD R3) Assessment/Plan Assessment and Plan 21 y/o female who is PPD# 2 s/p . -Continue routine care. -Tylenol and Motrin PRN pain. -Encouraged OOB. Advised pelvic rest for 6 wks. -Will need a f/u appt. within 6 wks. -D/c today Discharge Planning Likely to home tomorrow (Sharlene Mary MD R3) Attestation Patient seen and examined. Consider D/C home today. (Iram Rush MD) Sharlene Mary MD R3 Jan 23, 2017 07:29 Iram Rush MD Jan 23, 2017 10:57
[2017-01-23] MEDS: DOCUSATE SODIUM 50 MG/SENNA 8.6 MG TAB PO PRN (09:27)
[2017-03-01] MEDS ORDERED: ORTH0.35 PO (10:40)
== END 2017-01-23 10:09 | disposition home or self-care (01) | DRG 775 ==
LOC: HOBED 05:27 → H2EB 05:56 → H1EA 23:12
PROVIDERS: ADMIT Obstetrics & Gynecology; ATTEND Obstetrics & Gynecology
PROC: 10E0XZZ Delivery of Products of Conception, External Approach (ICD-10-PCS; principal; 2017-01-21)
PROC: 10907ZC Drainage of Amniotic Fluid, Therapeutic from Products of Conception, Via Natural or Artificial Opening (ICD-10-PCS; 2017-01-21)
PROC: 0HQ9XZZ Repair Perineum Skin, External Approach (ICD-10-PCS; 2017-01-21)
DX: O48.0 Post-term pregnancy (principal); O71.4 Obstetric high vaginal laceration alone; Z37.0 Single live birth; Z3A.40 40 weeks gestation of pregnancy
CPT/HCPCS: 59025; 76815; 81001; 84112; 85025; 86900; 86901; 99285; J2590; J3010; J7120

== ENCOUNTER 2017-01-27 00:14 | Emergency (ER) | payer OTHER ==
[~2017-01-27] VITALS: Ht 167.6 cm; Wt 79.7 kg
[~2017-01-27 00:14] MED LIST changes: -COLA100C3 PO; +IBUP-232 PO; +PREN29TA PO; -ZOFR4TAB3 SL
[2017-01-27 00:15] VITALS: BP 123/59; PULSE 78; RESP 18; TEMP 98.6; O2SAT 99
[2017-01-27] MEDS ORDERED: CEPH-460 PO (00:48)
--- NOTE | 2017-01-27 00:48 | PD ---
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 Patient is also concerned because the edges of the wound appeared to be . She is having slight vaginal bleeding. No foul-smelling vaginal discharge. No fevers or chills. No abdominal pain. Itching/burning is worse with walking. PFSH Past Medical History LMP: DELIVERED 01/21 Social History Alcohol Use: No Tobacco Use: No Allergies-Medications (Allergen,Severity, Reaction): Coded Allergies: No Known Allergies (Unverified , 01/27/17) Reported Meds & Prescriptions Reported Meds & Active Scripts Active Ibuprofen 600 Mg Tab 600 Mg PO Q6H PRN Reported Plus Iron 29-1 mg ( Vit-Iron Carbonyl) 1 Tab Tab 1 Tab PO DAILY Review of Systems Except as stated in HPI: all other systems reviewed are Neg Physical Exam Narrative GENERAL: Well-developed, well-nourished, comfortable, no acute distress. SKIN: Focused skin assessment warm/dry. HEAD: Atraumatic. Normocephalic. EYES: Pupils equal and round. No scleral icterus. No injection or drainage. ENT: Mucous membranes pink and moist. CARDIOVASCULAR: Regular rate and rhythm. RESPIRATORY: No accessory muscle use. Clear to auscultation. Breath sounds equal bilaterally. GASTROINTESTINAL: Abdomen soft, non-tender, nondistended. STUDIO ASSISTANT: Exam performed in the presence of a female nurse. Inferior/left lateral introitus with wound that is held in place with sutures with mild surrounding erythema, without fluctuance, with moderate tenderness. There is moderate amount of vaginal bleeding. No foul-smelling lochia. NEUROLOGICAL: Awake and alert. No obvious cranial nerve deficits. Motor grossly within normal limits. Normal speech. PSYCHIATRIC: Appropriate mood and affect; insight and judgment normal. Data Data Last Documented VS Vital Signs Date Time Temp Pulse Resp B/P Pulse Ox O2 Delivery O2 Flow Rate FiO2 01/27/17 00:15 98.6 78 18 123/59 99 MDM Medical Decision Making Medical Screen Exam Complete: Yes Emergency Medical Condition: Yes Differential Diagnosis Cellulitis, abscess unlikely, healing process Narrative Course Vital signs reviewed. Genital exam performed in the presence of a female nurse. The patient has a small vaginal tear with sutures in place with mild surrounding erythema. There is a moderate amount of vaginal bleeding. No foul-smelling lochia. No signs of yeast infection. I believe that the patient's symptoms are likely related to the healing process. The patient is concerned because the wound edges do not appear to be matched. I told her that this will likely heal very well. Plan is to start her on Keflex. She is instructed to follow-up with the doctor who delivered her baby this week. She was informed on when to return to the emergency department patient verbalizes understanding and agreement with plan. Diagnosis Primary Impression: Cellulitis of labia Referrals: Primary Care Physician 3 days Additional Instructions: Follow-up with your primary care physician this week. 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 Return to the emergency department for worsening symptoms or any other concerns. Scripts Cephalexin (Keflex)500 Mg [id number] Mg PO Q8H #30 CAP Ref 0 Prov:Nazario Boyd MD 01/27/17 Disposition: 01 DISCHARGE HOME Condition: Stable Nazario Boyd MD Jan 27, 2017 00:48
[2017-01-27] MEDS ORDERED: CEPHALEXIN MONOHYDRATE 500 MG CAP PO ONE (01:00)
[2017-03-01] MEDS ORDERED: ORTH0.35 PO (10:40)
== END 2017-01-27 01:03 | disposition home or self-care (01) ==
LOC: NEPC 00:14
DX: O86.19 Other infection of genital tract following delivery (principal)
CPT/HCPCS: 99283